=== PATIENT | male | born 1965 | race Caucasian/White ===

== ENCOUNTER 2017-03-01 20:41 | Emergency (ER) | payer MEDICAID ==
[~2017-03-01] VITALS: Ht 170.2 cm; Wt 63.5 kg
[2017-03-01 21:06] VITALS: BP 116/80
[2017-03-01] MEDS ORDERED: ONDANSETRON HCL 4 MG/2 ML VIAL IM ONE (23:45)
[2017-03-01] MEDS ORDERED: HYDROmorphone HCL 2 MG/ML VL IM ONE (23:45)
== END 2017-03-02 00:38 | disposition home or self-care (01) ==
LOC: ER 20:48
DX: G89.29 Other chronic pain (principal); M54.5 Low back pain; M25.561 Pain in right knee; F17.210 Nicotine dependence, cigarettes, uncomplicated
CPT/HCPCS: 72100; 73562; 96372; 99284; J1170; J2405

== ENCOUNTER 2017-04-10 02:11 | Observation (INO) | payer MEDICAID ==
[~2017-04-10] VITALS: Ht 172.7 cm; Wt 63.5 kg
[2017-04-10 02:51] LABS: Basophils # (auto) 0.1 uL; Basophils % (auto) 2.1 % (0.0-2.0); Eosinophils # (auto) 0.1 uL; Eosinophils % (auto) 1.4 % (0.0-7.0); Hematocrit 47.5 % (41.0-53.0); Hemoglobin 15.5 g/dL (13.5-17.5); Lymphocytes # (auto) 2.4 uL; Lymphocytes % (auto) 43.8 % (10.0-50.0); Mean Corpuscular Hemoglobin 28.6 pg (28.0-32.0); Mean Corpuscular Hgb Conc. 32.5 g/dL (32.0-36.0); Mean Corpuscular Volume 88.1 fL (80.0-100.0); Mean Platelet Volume 7.5 fL (7.4-10.4); Monocytes # (auto) 0.7 uL; Monocytes % (auto) 11.6 % (0.0-12.0); Neutrophils # (auto) 2.3 uL; Neutrophils % (auto) 41.1 % (37.0-80.0); Platelet Count (auto) 285 10^3/uL (140-450); Red Cell Distribution Width 13.9 % (11.6-16.0); White Blood Cell 5.6 10^3/uL (4.4-10.8)
[2017-04-10 03:08] LABS: BUN/Creatinine Ratio 15.3; Bilirubin, Total 0.5 mg/dL (0.2-1.0); Calcium 8.3 mg/dL (8.5-10.1); Potassium 3.6 mmol/L (3.5-5.1); Total Protein 7.6 g/dL (6.4-8.2)
[2017-04-10 03:16] LABS: Salicylate 2.1 mg/dL (2.8-20.0)
[2017-04-10 03:19] LABS: Acetaminophen 41.9 ug/mL (10-30)
[2017-04-10] MEDS ORDERED: ACETYLCYSTEINE 10 %(100MG/ML) SOL 4ML NEB ONE (03:30)
[2017-04-10] MEDS ORDERED: SODIUM CHLORIDE 0.9% 2,000 ML IV ONE (03:30)
[2017-04-10] MEDS ORDERED: ALBUTEROL SULF 2.5 MG/0.5ML(0.5%) NEB SOLN NEB ONE (03:45)
[2017-04-10] MEDS ORDERED: THIAMINE INJ 100 MG, MULTIPLE VITAMIN 10 ML, FOLIC ACID 1 MG, MAGNESIUM SULF SDV 50% 8 ... IV ONE ×5 (07:00)
[2017-04-10 10:08] VITALS: BP 120/77
== END 2017-04-10 10:43 | disposition home or self-care (01) | DRG 52 ==
LOC: ER 02:15 → OVERFLOW 06:24 → ER 10:43
PROVIDERS: ADMIT Emergency Medicine; ATTEND Emergency Medicine
DX: G92 Toxic encephalopathy (principal); F10.120 Alcohol abuse with intoxication, uncomplicated; T54.0X1A Toxic effect of phenol and phenol homologues, accidental (unintentional), initial encounter; F17.210 Nicotine dependence, cigarettes, uncomplicated; Y92.89 Other specified places as the place of occurrence of the external cause
CPT/HCPCS: 36415; 80053; 80320; 80329; 85025; 93005; 94640; 96361; 96365; 99285; G0378; J3411; J3475; J7030

== ENCOUNTER 2017-04-22 23:10 | Emergency (ER) | payer MEDICAID ==
[~2017-04-22] VITALS: Ht 170.2 cm; Wt 63.5 kg
[2017-04-23 02:43] VITALS: BP 127/87
[2017-04-23] MEDS ORDERED: IBUPROFEN 600 MG TAB PO ONE (03:00)
[2017-04-23] MEDS ORDERED: CYCLOBENZAPRINE HCL 10 MG TAB PO ONE (03:00)
== END 2017-04-23 02:54 | disposition home or self-care (01) ==
LOC: ER 23:10
DX: S13.9XXA Sprain of joints and ligaments of unspecified parts of neck, initial encounter (principal); S00.83XA Contusion of other part of head, initial encounter; H92.02 Otalgia, left ear; F17.210 Nicotine dependence, cigarettes, uncomplicated; F12.10 Cannabis abuse, uncomplicated; Y08.89XA Assault by other specified means, initial encounter; Y93.9 Activity, unspecified; Y99.8 Other external cause status; Y92.89 Other specified places as the place of occurrence of the external cause
CPT/HCPCS: 70450; 70486; 72125

== ENCOUNTER 2017-11-13 08:02 | Emergency (ER) | payer MEDICAID ==
[~2017-11-13] VITALS: Ht 170.2 cm; Wt 61.2 kg
[2017-11-13 08:13] VITALS: BP 134/87
[2017-11-13 08:45] LABS: Basophils # (auto) 0.1 uL; Basophils % (auto) 1.4 % (0.0-2.0); Eosinophils # (auto) 0.1 uL; Eosinophils % (auto) 1.6 % (0.0-7.0); Hematocrit 50.1 % (41.0-53.0); Hemoglobin 16.6 g/dL (13.5-17.5); Lymphocytes % (auto) 39.9 % (10.0-50.0); Mean Corpuscular Hemoglobin 30.3 pg (28.0-32.0); Mean Corpuscular Hgb Conc. 33.2 g/dL (32.0-36.0); Mean Corpuscular Volume 91.3 fL (80.0-100.0); Mean Platelet Volume 7.2 fL (6.9-10.8); Monocytes # (auto) 0.6 uL; Neutrophils # (auto) 2.2 uL; Neutrophils % (auto) 44.1 % (37.0-80.0); Nucleated Red Blood Cells % 0.1 %; Platelet Count (auto) 259 10^3/uL (140-450); Red Cell Distribution Width 14.5 % (11.8-14.3)
[2017-11-13 09:02] LABS: BUN/Creatinine Ratio 15.9; Bilirubin, Total 0.3 mg/dL (0.2-1.0); Calcium 8.4 mg/dL (8.5-10.1); Total Protein 8.1 g/dL (6.4-8.2)
[2017-11-13] MEDS ORDERED: PANTOPRAZOLE 40 MG TAB PO ONE (10:00)
== END 2017-11-13 14:04 | disposition left against medical advice (07) ==
LOC: ER 08:02
DX: K29.71 Gastritis, unspecified, with bleeding (principal); K64.9 Unspecified hemorrhoids; F17.210 Nicotine dependence, cigarettes, uncomplicated
CPT/HCPCS: 36415; 80053; 80320; 85025

== ENCOUNTER 2018-08-24 09:54 | Emergency (ER) | payer MEDICAID ==
[~2018-08-24] VITALS: Ht 170.2 cm; Wt 63.5 kg
[2018-08-24 10:57] LABS: Alanine Aminotransferase 32 U/L (16-61); Albumin 3.3 g/dL (3.4-5.0); Alkaline Phosphatase 99 U/L (45-117); Anion Gap 5 (5-15); Aspartate Aminotransferase 25 U/L (15-37); BUN/Creatinine Ratio 12.9; Bilirubin, Total 0.3 mg/dL (0.2-1.0); Blood Urea Nitrogen 11 mg/dL (7-18); Calcium 8.5 mg/dL (8.5-10.1); Carbon Dioxide 27 mmol/L (21-32); Chloride 107 mmol/L (98-107); GFR African American 121 mL/min; GFR Non-African American 100 mL/min; Glucose 103 mg/dL (74-106); Magnesium 2.7 mg/dL (1.6-2.6); Sodium 139 mmol/L (136-145); Total Protein 7.8 g/dL (6.4-8.2)
[2018-08-24 11:34] LABS: Basophils # (auto) 0.1 uL; Eosinophils # (auto) 0.1 uL; Eosinophils % (auto) 1.3 % (0.0-7.0); Hematocrit 47.1 % (41.0-53.0); Lymphocytes # (auto) 1.6 uL; Lymphocytes % (auto) 20.7 % (10.0-50.0); Mean Corpuscular Hemoglobin 30.8 pg (28.0-32.0); Mean Corpuscular Volume 90.6 fL (80.0-100.0); Monocytes # (auto) 1.1 uL; Neutrophils # (auto) 4.7 uL; Platelet Count (auto) 312 10^3/uL (140-450); Red Cell Distribution Width 14.7 % (11.8-14.3); White Blood Cell 7.5 10^3/uL (4.4-10.8)
[2018-08-24 12:03] VITALS: BP 122/69
== END 2018-08-24 12:02 | disposition home or self-care (01) ==
LOC: ER 09:55
DX: R07.89 Other chest pain (principal); F17.210 Nicotine dependence, cigarettes, uncomplicated; F12.10 Cannabis abuse, uncomplicated; F32.9 Major depressive disorder, single episode, unspecified
CPT/HCPCS: 36415; 71045; 80053; 82962; 83735; 84484; 85025; 93005; 94761

== ENCOUNTER 2025-11-03 11:48 | Emergency (ER) | payer MEDICAID, OTHER ==
[~2025-11-03] VITALS: Ht 170.2 cm; Wt 59.9 kg
[2025-11-03 12:01] VITALS: BP 125/83; PULSE 91; RESP 16; TEMP 98.2; O2SAT 95
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
[2025-11-03 13:03] LABS: Hematocrit 46.0 % (41.0-53.0); Hemoglobin 15.2 g/dL (13.5-17.5); Mean Corpuscular Hemoglobin 30.1 pg (28.0-32.0); Mean Corpuscular Volume 91.1 fL (80.0-100.0)
[2025-11-03 13:12] LABS: Chloride 104 mmol/L (98-107); Potassium 4.0 mmol/L (3.5-5.1); Sodium 140 mmol/L (136-145)
[2025-11-03 13:13] LABS: Anion Gap 10 (5-15); Carbon Dioxide 26 mmol/L (20-31)
[2025-11-03 13:14] LABS: Calcium 9.5 mg/dL (8.7-10.4)
[2025-11-03 13:18] LABS: BUN/Creatinine Ratio 12.2 (10.0-20.0); Glucose 81 mg/dL (74-106)
[2025-11-03 13:53] LABS: Blood Urea Nitrogen 9 mg/dL (9-23)
--- NOTE | 2025-11-03 14:02 | DVH ---
Chest x-ray Technique: PA and lateral views CLINICAL INDICATION: Pneumonia FINDINGS: Heart size is normal. Lung marquez slightly hyperexpanded. No infiltrates or effusions. No bony thoracic abnormalities. IMPRESSION: 1. No acute cardiopulmonary pathology
[2025-11-03 14:31] LABS: Total Cells Counted 100.0 (100)
[2025-11-03] MEDS ORDERED: ALBUAER3 IN (14:57)
[2025-11-03] MEDS: ALBUTEROL SULF 2.5 MG/0.5ML(0.5%) NEB SOLN NEB ONE (15:03)
[2025-11-03] MEDS: IPRATROPIUM BROM 0.5 MG/2.5ML INH SOL NEB ONE (15:03)
== END 2025-11-03 21:07 | disposition home or self-care (01) ==
LOC: ER 11:48
DX: J44.1 Chronic obstructive pulmonary disease with (acute) exacerbation (principal); F12.90 Cannabis use, unspecified, uncomplicated; F10.90 Alcohol use, unspecified, uncomplicated; F17.210 Nicotine dependence, cigarettes, uncomplicated; G89.29 Other chronic pain; Z98.890 Other specified postprocedural states; Z90.89 Acquired absence of other organs
CPT/HCPCS: 36415; 71046; 80048; 83880; 84484; 85007; 85027; 94640